=== PATIENT | male | born 1965 | race Caucasian/White ===

== ENCOUNTER 2018-01-22 07:09 | Day surgery (SDC) | payer BC ==
[~2018-01-22 07:09] MED LIST: Lactated Ringers 1,000 ML IV SCH; Lidocaine 1%/Sod Bicarbonate in NS 8.4% 1 ML Syringe IDERM PRN; Midazolam 1 MG/ML 2 ML SDV ONE; Propofol 200 MG/20 ML SDV ONE; Sodium Chloride 0.9% 10 ML Syringe FLUSH PRN; fentaNYL 100 MCG/2 ML SDV ONE
[2018-01-22] MEDS ORDERED: Lidocaine 1% 30 ML SDV ONE (07:30)
[2018-01-22] MEDS ORDERED: Lidocaine 1% with EPINEPHrine 1:100,000 20 ML MDV ONE (07:30)
[2018-01-22] MEDS ORDERED: Bacitracin Oint 15 GM Tube ONE (07:30)
--- NOTE | 2018-01-22 07:32 | PCM.PREANE ---
Preanesthetic Assessment - Allergies Allergies/Adverse Reactions: Allergies Allergy/AdvReac Type Severity Reaction Status Date / Time No Known Allergies Allergy Verified 01/19/18 10:59 PreAnesthesia Questionnaire HEENT History: Reports: Other (See Below) Other HEENT History: dentures Cardiovascular History: Reports: None Respiratory History: Reports: None Gastrointestinal History: Reports: None Genitourinary History: Reports: None [employer] History: Reports: None Musculoskeletal History: Reports: None Neurological History: Reports: None Psychiatric History: Reports: None Endocrine/Metabolic History: Reports: None Hematologic History: Reports: None Immunologic History: Reports: None Oncologic (Cancer) History: Reports: None Dermatologic History: Reports: None - Past Surgical History Head Surgeries/Procedures: Reports: None Cardiovascular Surgical History: Reports: None Respiratory Surgical History: Reports: None GI Surgical History: Reports: Colonoscopy Female Surgical History: Reports: None Male Surgical History: Reports: None Endocrine Surgical History: Reports: None Neurological Surgical History: Reports: None Musculoskeletal Surgical History: Reports: None Oncologic Surgical History: Reports: None Dermatological Surgical History: Reports: None - SUBSTANCE USE Smoking Status *Q: Current Every Day Smoker Recreational Drug Use History: No - HOME MEDS Home Medications: Home Meds . [No Known Home Meds] 01/19/18 [History] - CURRENT (IN HOUSE) MEDS Current Meds: Current Medications Lactated Ringer's (Ringers, Lactated) 1,000 mls @ 125 mls/hr IV ASDIRECTED LEIGH Stop: 01/22/18 23:00 Lidocaine/Sodium Bicarbonate (Buffered Lidocaine 1% In Ns 8.4%) 0.25 ml IDERM ONETIME PRN PRN Reason: Prior to IV Start Stop: 01/22/18 18:00 Sodium Chloride (Saline Flush) 10 ml FLUSH ASDIRECTED PRN PRN Reason: Keep Vein Open Stop: 01/22/18 18:00 Discontinued Medications Fentanyl (Sublimaze) Confirm Administered Dose 100 mcg .ROUTE .STK-MED ONE Stop: 01/22/18 07:04 Midazolam HCl (Versed 1 Mg/Ml) Confirm Administered Dose 2 mg .ROUTE .STK-MED ONE Stop: 01/22/18 07:03 Propofol (Diprivan 20 Ml) Confirm Administered Dose 200 mg .ROUTE .STK-MED ONE Stop: 01/22/18 07:01
--- NOTE | 2018-01-22 09:41 | PCM.OPNOTE ---
- General Post-Op/Procedure Note Date of Surgery/Procedure: 01/22/18 Operative Procedure(s): wedge resection basal cell of the helix of the left ear Pre Op Diagnosis: basal cell of the left ear Post-Op Diagnosis: Same Anesthesia Technique: Local Primary Surgeon: Cliff VIDAL in mLs: 4 Complications: None Condition: Good
--- NOTE | 2018-01-23 07:03 | OR ---
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 POSTOPERATIVE DIAGNOSIS: Basal cell carcinoma helix of the left ear. OPERATION PERFORMED: Wedge resection and layered closure. ANESTHESIA: Done under local anesthetic of 1% Xylocaine with epinephrine. FINDINGS: Lesion and margin 1 cm. DESCRIPTION OF PROCEDURE: The patient was taken to the operating room, placed in a supine position. The area in question had been marked. Left ear was prepped with Betadine and draped off in a sterile fashion. A block was placed around the ear using 1% Xylocaine with epinephrine. Once good anesthesia was established, margins were traced on the skin in a form of a wedge, an incision was made. Superior margins were marked with a silk suture. Inferior margins were left and marked, was sent to pathology. However, cryostat was not working and frozen section was not done. The skin of the ear was then brought together with interrupted 4-0 Vicryl suture and the skin was then closed with interrupted 5-0 Prolene suture and 4-0 Prolene suture on the backside. Care was taken to align the helix of the ear. Sterile dressing was placed. Bacitracin ointment. ESTIMATED BLOOD LOSS: About 4 mL. MMODAL /[id number]
== END 2018-01-22 10:05 | disposition home or self-care (01) ==
LOC: JD.SDS 07:09
PROVIDERS: ATTEND Surgery
DX: C44.219 Basal cell carcinoma of skin of left ear and external auricular canal (principal); F17.210 Nicotine dependence, cigarettes, uncomplicated
CPT/HCPCS: 11640; 12051; 88305; A9270; J7120; J2250; J2704; J3010

== ENCOUNTER 2018-04-13 21:09 | Emergency (ER) | payer BC ==
[2018-04-13] MEDS ORDERED: Diphtheria,Pertussis(Acell),Tetanus Vaccine 0.5 ML SDV IM ONE (21:32)
[2018-04-13] MEDS ORDERED: Lidocaine 1% 50 ML MDV INJECT ONE (21:38)
--- NOTE | 2018-04-13 21:41 | EDM.PDOC ---
<Katharina Johnson M - Last Filed: 04/13/18 21:41> ED HPI GENERAL MEDICAL PROBLEM - General Chief Complaint: Laceration Stated Complaint: cut to finger Time Seen by Provider: 04/13/18 21:20 Source of Information: Reports: Patient History Limitations: Reports: No Limitations - History of Present Illness INITIAL COMMENTS - FREE TEXT/NARRATIVE: Patient comes in today for complaint of right index finger laceration. Patient crushed the finger between two metal pieces of equipment while trying to attach a mobile home to a hitch. Patient has two lacerations of his finger. He states that the finger does not hurt and he has not needed any medication or ice for pain. He is able to flex and extend the finger. Onset: Today, Sudden Onset Date: 04/13/18 Onset Time: 15:00 Location: Reports: Upper Extremity, Right (right index finger) Severity: Mild Improves with: Reports: None Worsens with: Reports: None Context: Reports: Trauma Associated Symptoms: Reports: No Other Symptoms Right 2-Index finger Pain Score (Numeric/FACES): 2 - Related Data Allergies Allergy/AdvReac Type Severity Reaction Status Date / Time No Known Allergies Allergy Verified 01/19/18 10:59 Home Meds: Home Meds Doxycycline [Vibramycin] 100 mg PO BID #20 cap 04/13/18 [Rx] Past Medical History HEENT History: Reports: Other (See Below) Other HEENT History: dentures Cardiovascular History: Reports: None Respiratory History: Reports: None Gastrointestinal History: Reports: None Genitourinary History: Reports: None 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 Musculoskeletal History: Reports: None Neurological History: Reports: None Psychiatric History: Reports: None Endocrine/Metabolic History: Reports: None Hematologic History: Reports: None Immunologic History: Reports: None Oncologic (Cancer) History: Reports: None Dermatologic History: Reports: None - Past Surgical History Head Surgeries/Procedures: Reports: None Cardiovascular Surgical History: Reports: None Respiratory Surgical History: Reports: None GI Surgical History: Reports: Colonoscopy Male Surgical History: Reports: None Endocrine Surgical History: Reports: None Neurological Surgical History: Reports: None Musculoskeletal Surgical History: Reports: None Oncologic Surgical History: Reports: None Dermatological Surgical History: Reports: None Social & Family History - Tobacco Use Smoking Status *Q: Current Every Day Smoker Years of Tobacco use: 30 Packs/Tins Daily: 1 - Caffeine Use Caffeine Use: Reports: Energy Drinks, Soda ED ROS GENERAL - Review of Systems Constitutional: Reports: No Symptoms Musculoskeletal: Reports: Other (right index finger lacerations) ED EXAM, SKIN/RASH Exam: See Below Exam Limited By: No Limitations General Appearance: Alert, WD/WN, No Apparent Distress Extremities: Other (right index finger swelling and lacerations. One laceration starts on the dorsal finger and wraps around to the volar surface of the finger and is 5 cm in length, there is also a 3 cm laceration on the lateral aspect of the finger. ) Course - Orders/Labs/Meds Meds: Medications Discontinued Medications Generic Name Dose Route Start Last Admin Trade Name Freq PRN Reason Stop Dose Admin Diphtheria/Tetanus/Acell Pertussis 0.5 ml 04/13/18 21:32 04/13/18 21:48 Adacel IM 04/13/18 21:33 0.5 ml .ONCE ONE Administration Lidocaine HCl 50 ml 04/13/18 21:38 04/13/18 21:49 Xylocaine 1% INJECT 04/13/18 21:39 50 ml ONETIME ONE Administration Departure - Departure Disposition: Home, Self-Care 01 Clinical Impression: Laceration - Discharge Information Prescriptions: Doxycycline [Vibramycin] 100 mg PO BID #20 cap Instructions: Laceration Care, Adult, [id number] Referrals: PCP,None [Primary Care Provider] - Forms: ED Department Discharge Additional Instructions: wash the wound with gentle soap and water twice a day. Apply antibacterial ointment such as Neosporin or bacitracin to the wound twice a day. Keep the wound covered. Keep the wound in a splint. Have the sutures removed in 10 days. The [facility] clinic located on the side of the hospital is open Monday through Monday 8 AM to 5 PM and will remove the sutures for free. Call [phone] schedule the provider there. Monitor the wound for signs of infection such as increased swelling, pus or redness. Present to the clinic or the ER should these develop. Please return to the ER if your symptoms change or worsen. <Venus Echols - Last Filed: 04/15/18 19:24> ED HPI GENERAL MEDICAL PROBLEM - History of Present Illness INITIAL COMMENTS - FREE TEXT/NARRATIVE: I have seen the patient and agree with the HPI as documented by CAROL Townsend. Injury occurred around 1500 today. Patient denies any numbness or tingling. Reports some minor decreased ROM to the PIP joint due to swelling of the finger. Patient does not recall last tetanus. Patient is right handed. ED ROS GENERAL - Review of Systems Review Of Systems: See Below Skin: Reports: Wound (2 lacerations to the right 2nd finger) Neurological: Denies: Numbness, Tingling ED EXAM, SKIN/RASH Exam: See Below Respiratory/Chest: No Respiratory Distress Cardiovascular: Normal Peripheral Pulses Peripheral Pulses: 2+: Radial (R) Extremities: Normal Capillary Refill Neurological: Alert, Oriented, Normal Cognition Psychiatric: Normal Affect, Normal Mood Skin: Warm, Dry, Wound/Incision Location, Skin: Upper Extremity, Right ED SKIN PROCEDURES - Laceration/Wound Repair Right Digit - 2nd (Index) Lac/Wound length In cm: 9 (3 separate lacerations ; 5cm to the laceratal aspect , 1cm to the dorsal side and 3 cm to the medial side) Appearance: Subcutaneous, Irregular Distal NVT: Neuro & Vascular Intact, No Tendon Injury Anesthetic Type: Digital Local Anesthesia - Lidocaine (Xylocaine): 1% Plain Local Anesthetic Volume: Other (6cc) Skin Prep: Providone-Iodine (Betadine), Saline, Sterile Drape Saline Irrigation (cc's): 500 Exploration/Debridement/Repair: Wound Explored, No Foreign Material Found Closed with: Sutures Suture Size: 4-0 # of Sutures: 21 Suture Type: Nylon, Interrupted, Simple Sterile Dressing Applied: Nurse Tetanus Status Addressed: Yes Complications: No Course - Re-Assessments/Exams Free Text/Narrative Re-Assessment/Exam: 04/13/18 22:52 I have seen the patient and agree with the HPI , ROS and PE as documented by CAROL Townsend Tetanus was updated. CAROL Townsend placed 21 sutures. Patient tolerated well. No complications. Discharge instructions as documented. Departure - Departure Time of Disposition: 22:56 Condition: Fair - Discharge Information *PRESCRIPTION DRUG MONITORING PROGRAM REVIEWED*: No *COPY OF PRESCRIPTION DRUG MONITORING REPORT IN PATIENT YONATAN: No
--- NOTE | 2018-04-16 10:03 | CR ---
Right second finger: Four views of the right second finger were obtained. Comparison: No prior finger or hand exam. Soft tissue injury is identified. No fracture or other bony abnormality is seen. Impression: 1. Soft tissue injury. No acute bony abnormality is seen. Diagnostic code #2
== END 2018-04-13 23:18 | disposition home or self-care (01) ==
LOC: JD.ED 21:09
DX: S61.210A Laceration without foreign body of right index finger without damage to nail, initial encounter (principal); F17.210 Nicotine dependence, cigarettes, uncomplicated; Z23 Encounter for immunization; W23.1XXA Caught, crushed, jammed, or pinched between stationary objects, initial encounter
CPT/HCPCS: 12004; 73140-26-F6; 73140-F6; 90471; 90715; 99283-25